=== PATIENT | male | born 2000 | race Caucasian/White ===

== ENCOUNTER 2023-07-09 22:21 | Emergency (ER) | payer BC ==
--- NOTE | 2023-07-09 22:33 | ED ---
General Adult HPI - General Source: patient, police Mode of arrival: EMS Limitations: no limitations <Gonzales Huang - Last Filed: 07/09/23 22:32> <Michoacano Young - Last Filed: 07/10/23 13:36> - General Chief complaint: Psychiatric Symptoms Stated complaint: Mental Health Time Seen by Provider: 07/09/23 22:25 - History of Present Illness Initial comments: Dictation was produced using [employer] dictation software. please excuse any grammatical, word or spelling errors. Chief Complaint: 22-year-old male brought to the emergency department for psychiatric evaluation History of Present Illness: Patient 22-year-old male brought in from home by law enforcement. Patient had a petition filled out by parents for patient who is exhibiting signs of acute psychosis. According to petition note patient has been showing some bizarre behavior. He is also having aggressive behavior towards family. Parents are worried about their wellbeing. They are concerned that patient is having a acute psychiatric issue. Patient has no history of psychiatric illness The ROS documented in this emergency department record has been reviewed and confirmed by me. Those systems with pertinent positive or negative responses have been documented in the HPI. All other systems are other negative and/or noncontributory. (Gonzales Huang) Review of Systems ROS Other: All systems not noted in ROS Statement are negative. <Gonzales Huang - Last Filed: 07/09/23 22:32> ROS Other: All systems not noted in ROS Statement are negative. <Michoacano Young - Last Filed: 07/10/23 13:36> ROS Statement: Those systems with pertinent positive or pertinent negative responses have been documented in the HPI. General Exam Limitations: no limitations <Gonzales Huang - Last Filed: 07/09/23 22:32> - General Exam Comments Initial Comments: General: Well-appearing, nontoxic, no acute distress. Head: Normocephalic, atraumatic Eyes: PERRLA, EOMI ENT: Airway patent Chest: Nonlabored breathing Skin: No visual rash, normal skin tone Neuro: Alert and oriented 3 Musculoskeletal: No gross abnormalities (Gonzales Huang) Course Vital Signs 07/09/23 22:24 Temperature 98.3 F Pulse Rate 61 Respiratory 18 Rate Blood Pressure 154/90 O2 Sat by Pulse 98 Oximetry Medical Decision Making <Gonzales Huang - Last Filed: 07/09/23 22:32> <Michoacano Young - Last Filed: 07/10/23 13:36> - Medical Decision Making Was pt. sent in by a medical professional or institution (, SAULO, ENGINEERING OPERATIONS LEADER, urgent care, hospital, or alf...) When possible be specific @ -No Did you speak to anyone other than the patient for history (EMS, parent, family, police, friend...)? What history was obtained from this source @ -Low enforcement as described above Did you review nursing and triage notes (agree or disagree)? Why? @ -I reviewed and agree with nursing and triage notes Were old charts reviewed (outside hosp., previous admission, EMS record, old EKG, old radiological studies, urgent care reports/EKG's, alf records)? Report findings @ -Petition documents reviewed as described above Differential Diagnosis (chest pain, altered mental status, abdominal pain women, abdominal pain men, vaginal bleeding, musculoskeletal, weakness, fever, dyspnea, syncope, headache, dizziness, GI bleed, back pain, seizure, CVA, palpatations, mental health)? @ -Differential Mental Health: Depression, anxiety, bipolar, psychosis, schizophrenia, borderline personality, situational depression, adjustment disorder, behavioral disorder, brain tumor, malingering, substance abuse, encephalopathy, medication reaction, dementia, hypothyroidism, degenerative neurologic disorder, lupus.... This is not meant to be all-inclusive list EKG interpreted by me (3pts min.). @ -None done X-rays interpreted by me (1pt min.). @ -None done CT interpreted by me (1pt min.). @ -None done U/S interpreted by me (1pt. min.). @ -None done What testing was considered but not performed or refused? (CT, X-rays, U/S, labs)? Why? @ -None What meds were considered but not given or refused? Why? @ -None Did you discuss the management of the patient with other professionals (professionals i.e. , SAULO, ENGINEERING OPERATIONS LEADER, lab, RT, psych nurse, social media editor, order management specialist, teacher, identification officer, medical case worker)? Give summary @ -No Was smoking cessation discussed for >3mins.? @ -No Was critical care preformed (if so, how long)? @ -No Were there social determinants of health that impacted care today? How? (Homelessness, low income, unemployed, alcoholism, drug addiction, transportation, low edu. Level, literacy, decrease access to med. care, assisted, rehab)? @ -No Was there de-escalation of care discussed even if they declined (Discuss DNR or withdrawal of care, Hospice)? DNR status @ -No What co-morbidities impacted this encounter? (DM, HTN, Smoking, COPD, CAD, Cancer, CVA, ARF, Chemo, Hep., AIDS, mental health diagnosis, sleep apnea, morbid obesity)? @ -None Was patient admitted / discharged? Hospital course, mention meds given and route, prescriptions, significant lab abnormalities, going to OR and other pertinent info. @ -22-year-old male brought in from home for EPS evaluation. Vital signs are stable. (Gonzales Huang) Patient medically cleared by previous provider. Was pending psychiatric evalu ation by EPS. EPS Hany evaluated the patient discussed with psychiatry. He does meet inpatient criteria for psychiatric admission. Clinical certificate completed by myself. Diagnosis/symptom? @ -Acute psychosis Acute, or Chronic, or Acute on Chronic? @ -Acute Uncomplicated (without systemic symptoms) or Complicated (systemic symptoms)? @ -Complicated Side effects of treatment? @ -None Exacerbation, Progression, or Severe Exacerbation] @ -No Poses a threat to life or bodily function? @ -Yes (Michoacano Young) Disposition <Gonzales Huang - Last Filed: 07/09/23 22:32> <Michoacano Young - Last Filed: 07/10/23 13:36> Clinical Impression: Acute psychosis Disposition: TRANSFER TO PSYCH HOSP/UNIT Condition: Stable Referrals: None,Stated [Primary Care Provider] - 1-2 days
[2023-07-10 15:50] LABS: Basophils # (A) 0.1 k/uL (0-0.2); Basophils % (A) 1 %; Eosinophils # (A) 0.6 k/uL (0-0.7); Eosinophils % (A) 8 %; HCT 43.8 % (39.0-53.0); HGB 15.2 gm/dL (13.0-17.5); Lymphocytes # (A) 2.1 k/uL (1.0-4.8); Lymphocytes % (A) 31 %; MCH 30.6 pg (25.0-35.0); MCHC 34.7 g/dL (31.0-37.0); MCV 88.1 fL (80.0-100.0); Mean Platelet Volume 7.3; Monocytes # (A) 0.6 k/uL (0-1.0); Monocytes % (A) 9 %; Neutrophils # (A) 3.3 k/uL (1.3-7.7); Neutrophils % (A) 49 %; RBC 4.98 m/uL (4.30-5.90); RDW 11.9 % (11.5-15.5); WBC 6.7 k/uL (3.8-10.6)
[2023-07-10 16:06] LABS: African American GFR (CKD) >90 (>60 ml/min/1.73 sqM); Anion Gap 10 mmol/L; Blood Urea Nitrogen 16 mg/dL (9-20); Calcium 9.5 mg/dL (8.4-10.2); Carbon Dioxide 21 mmol/L (22-30); Chloride 107 mmol/L (98-107); Glucose 82 mg/dL (74-99); Non-African American GFR(CKD) >90 (>60 ml/min/1.73 sqM); Potassium 4.4 mmol/L (3.5-5.1); Sodium 138 mmol/L (137-145)
[2023-07-10 16:36] LABS: Platelet Count 207 k/uL (150-450)
[2023-07-10] MEDS: HALOPERIDOL LACTATE 5 MG/ML 1 ML VIAL IM STA (17:04)
[2023-07-10] MEDS: LORazepam 2 MG/ML INJ IM STA (17:05)
[2023-07-11] MEDS: HALOPERIDOL LACTATE 5 MG/ML 1 ML VIAL IM STA (01:54)
[2023-07-11] MEDS: LORazepam 2 MG/ML INJ IM STA (01:55)
[2023-07-11 04:45] VITALS: BP 168/82; PULSE 75; RESP 16; TEMP 97.9
== END 2023-07-11 15:59 ==
LOC: EC 22:21
DX: F23 Brief psychotic disorder (principal); Z11.52 Encounter for screening for COVID-19
CPT/HCPCS: 36415; 80048; 82075; 85025; 87636; 99285

== ENCOUNTER 2023-08-06 08:51 | Inpatient (IN) | payer BC, MEDICAID, OTHER ==
[2023-08-06 09:50] LABS: Basophils % (A) 1 %; Eosinophils # (A) 0.4 k/uL (0-0.7); Eosinophils % (A) 5 %; HCT 36.5 % (39.0-53.0); Lymphocytes # (A) 1.6 k/uL (1.0-4.8); Lymphocytes % (A) 20 %; MCH 30.5 pg (25.0-35.0); MCHC 35.6 g/dL (31.0-37.0); MCV 85.7 fL (80.0-100.0); Mean Platelet Volume 7.4; Monocytes # (A) 0.5 k/uL (0-1.0); Monocytes % (A) 6 %; Neutrophils # (A) 5.1 k/uL (1.3-7.7); Neutrophils % (A) 65 %; Platelet Count 252 k/uL (150-450); RBC 4.26 m/uL (4.30-5.90); RDW 12.6 % (11.5-15.5); WBC 7.7 k/uL (3.8-10.6)
[2023-08-06 10:10] LABS: Potassium 3.9 mmol/L (3.5-5.1)
[2023-08-06 10:11] LABS: ALT 37 U/L (4-49); AST 33 U/L (17-59); African American GFR (CKD) >90 (>60 ml/min/1.73 sqM); Albumin 4.2 g/dL (3.5-5.0); Alkaline Phosphatase 66 U/L (38-126); Anion Gap 12 mmol/L; Blood Urea Nitrogen 20 mg/dL (9-20); Calcium 9.6 mg/dL (8.4-10.2); Carbon Dioxide 23 mmol/L (22-30); Chloride 107 mmol/L (98-107); Glucose 93 mg/dL (74-99); Non-African American GFR(CKD) >90 (>60 ml/min/1.73 sqM); Sodium 142 mmol/L (137-145); Total Bilirubin 1.2 mg/dL (0.2-1.3); Total Protein 7.3 g/dL (6.3-8.2)
--- NOTE | 2023-08-06 10:50 | ED ---
Psych HPI - General Source: patient, police, RN notes reviewed Mode of arrival: wheelchair Limitations: no limitations <Migue Perez - Last Filed: 08/06/23 10:43> <Michoacano Young - Last Filed: 08/07/23 15:22> - General Chief Complaint: Psychiatric Symptoms Stated Complaint: Petitioned Time Seen by Provider: 08/06/23 08:54 - History of Present Illness Initial Comments: 22-year-old male presents emergency department with police from care home for psychiatric evaluation. Patient has been detained for the last few days they state he has been spent standing in his cell masturbating for 2 days. They noted some swelling on his feet as he has not sat down. Patient is unable to provide any useful information as he does not answer questions with appropriate answers he is currently hyperverbal. He states that he has been like this in the past he has been here for psychiatric evaluations. Will not answer if he uses any drugs or alcohol. Denies being suicidal (Migue Perez) - Related Data Home Medications Medication Instructions Recorded Confirmed OLANZapine [ZyPREXA] 5 mg PO DIRECTED 08/06/23 08/06/23 Allergies Allergy/AdvReac Type Severity Reaction Status Date / Time seasoal allergies Allergy Unknown Uncoded 08/06/23 11:23 Review of Systems ROS Other: All systems not noted in ROS Statement are negative. <Migue Perez - Last Filed: 08/06/23 10:43> ROS Other: All systems not noted in ROS Statement are negative. <Michoacano Young - Last Filed: 08/07/23 15:22> ROS Statement: Those systems with pertinent positive or pertinent negative responses have been documented in the HPI. Past Medical History Past Medical History: No Reported History Past Surgical History: No Surgical Hx Reported Past Psychological History: Unable to Obtain Smoking Status: Unknown if ever smoked Past Alcohol Use History: Unable to Obtain Past Drug Use History: Unable to Obtain <Migue Perez - Last Filed: 08/06/23 10:43> General Exam Limitations: altered mental status General appearance: alert, in no apparent distress Eye exam: Present: normal appearance, PERRL, EOMI. Absent: scleral icterus, conjunctival injection, periorbital swelling ENT exam: Present: normal exam, normal oropharynx, mucous membranes moist Neck exam: Present: normal inspection, full ROM. Absent: tenderness, meningismus, lymphadenopathy Respiratory exam: Present: normal lung sounds bilaterally. Absent: respiratory distress, wheezes, rales, rhonchi, stridor Cardiovascular Exam: Present: regular rate, normal rhythm, normal heart sounds. Absent: systolic murmur, diastolic murmur, rubs, gallop, clicks GI/Abdominal exam: Present: soft, normal bowel sounds. Absent: distended, tenderness, guarding, rebound, rigid Extremities exam: Present: pedal edema, other (Swelling pitting edema bilateral lower extremities) Neurological exam: Present: alert. Absent: oriented X3 Psychiatric exam: Present: manic Skin exam: Present: warm, dry, intact, normal color, other (Gandara noted on the hand). Absent: rash <Migue Perez - Last Filed: 08/06/23 10:43> Course Vital Signs 08/06/23 08:59 Temperature 98.4 F Pulse Rate 68 Respiratory 18 Rate Blood Pressure 140/72 O2 Sat by Pulse 100 Oximetry Medical Decision Making - Lab Data Result diagrams: 08/06/23 09:22 08/06/23 09:22 <Migue Perez - Last Filed: 08/06/23 10:43> - Lab Data Result diagrams: 08/06/23 09:22 08/06/23 09:22 <Michoacano Young - Last Filed: 08/07/23 15:22> - Medical Decision Making Was pt. sent in by a medical professional or institution (SAULO Blevins, KINESIOLOGY PROFESSOR, urgent care, hospital, or [place] [facility]...) When possible be specific @ -No Did you speak to anyone other than the patient for history (EMS, parent, family, police, friend...)? What history was obtained from this source @ -Police providing care home history Did you review nursing and triage notes (agree or disagree)? Why? @ -I reviewed and agree with nursing and triage notes Were old charts reviewed (outside hosp., previous admission, EMS record, old EKG, old radiological studies, urgent care reports/EKG's, [place] [facility] records)? Report findings @ -No old charts were reviewed Differential Diagnosis (chest pain, altered mental status, abdominal pain women, abdominal pain men, vaginal bleeding, weakness, fever, dyspnea, syncope, headache, dizziness, GI bleed, back pain, seizure, CVA, palpatations, mental health, musculoskeletal)? @ -Differential Mental Health Depression, anxiety, bipolar, psychosis, schizophrenia, borderline personality, situational depression, adjustment disorder, behavioral disorder, brain tumor, malingering, substance abuse, encephalopathy, medication reaction, dementia, hypothyroidism, degenerative neurologic disorder, lupus.... This is not meant to be all-inclusive list EKG interpreted by me (3pts min.). @ -As above X-rays interpreted by me (1pt min.). @ -None done CT interpreted by me (1pt min.). @ -None done U/S interpreted by me (1pt. min.). @ -None done What testing was considered but not performed or refused? (CT, X-rays, U/S, labs)? Why? @ -None What meds were considered but not given or refused? Why? @ -None Did you discuss the management of the patient with other professionals (professionals i.e. , PA, KINESIOLOGY PROFESSOR, lab, RT, psych nurse, social media project manager, supervisor multifocal lens, teacher, youth liaison officer, nurse case management)? Give summary @ -EPS evaluated the patient and recommended inpatient treatment Was smoking cessation discussed for >3mins.? @ -No Was critical care preformed (if so, how long)? @ -No Were there social determinants of health that impacted care today? How? (Homelessness, low income, unemployed, alcoholism, drug addiction, transportation, low edu. Level, literacy, decrease access to med. care, care home, rehab)? @ -No Was there de-escalation of care discussed even if they declined (Discuss DNR or withdrawal of care, Hospice)? DNR status @ -No What co-morbidities impacted this encounter? (DM, HTN, Smoking, COPD, CAD, Cancer, CVA, ARF, Chemo, Hep., AIDS, mental health diagnosis, sleep apnea, morbid obesity)? @ -None Was patient admitted / discharged? Hospital course, mention meds given and route, prescriptions, significant lab abnormalities, going to OR and other pertinent info. @ -Admitted to psych for further treatment management Undiagnosed new problem with uncertain prognosis? @ -No Drug Therapy requiring intensive monitoring for toxicity (Heparin, Nitro, Insulin, Cardizem)? @ -No Were any procedures done? @ -No Diagnosis/symptom? @ -Acute psychosis Acute, or Chronic, or Acute on Chronic? @ -Acute Uncomplicated (without systemic symptoms) or Complicated (systemic symptoms)? @ -Uncomplicated Side effects of treatment? @ -No Exacerbation, Progression, or Severe Exacerbation? @ -No Poses a threat to life or bodily function? How? (Chest pain, USA, IA, pneumonia, PE, COPD, DKA, ARF, appy, cholecystitis, CVA, Diverticulitis, Homicidal, Kym cidal, threat to staff... and all critical care pts) @ -No (Migue Perez) Clinical certificate completed by myself. (Michoacano Young) - Lab Data Lab Results 08/06/23 08/06/23 08/06/23 Range/Units 09:00 09:22 09:22 WBC 7.7 (3.8-10.6) k/uL RBC 4.26 L (4.30-5.90) m/uL Hgb 13.0 (13.0-17.5) gm/dL Hct 36.5 L (39.0-53.0) % MCV 85.7 (80.0-100.0) fL MCH 30.5 (25.0-35.0) pg MCHC 35.6 (31.0-37.0) g/dL RDW 12.6 (11.5-15.5) % Plt Count 252 (150-450) k/uL MPV 7.4 Neutrophils % 65 % Lymphocytes % 20 % Monocytes % 6 % Eosinophils % 5 % Basophils % 1 % Neutrophils # 5.1 (1.3-7.7) k/uL Lymphocytes # 1.6 (1.0-4.8) k/uL Monocytes # 0.5 (0-1.0) k/uL Eosinophils # 0.4 (0-0.7) k/uL Basophils # 0.0 (0-0.2) k/uL Sodium 142 (137-145) mmol/L Potassium 3.9 (3.5-5.1) mmol/L Chloride 107 (98-107) mmol/L Carbon Dioxide 23 (22-30) mmol/L Anion Gap 12 mmol/L BUN 20 (9-20) mg/dL Creatinine 0.76 (0.66-1.25) mg/dL Est GFR (CKD-EPI)AfAm >90 (>60 ml/min/1.73 sqM) Est GFR (CKD-EPI)NonAf >90 (>60 ml/min/1.73 sqM) Glucose 93 (74-99) mg/dL Calcium 9.6 (8.4-10.2) mg/dL Total Bilirubin 1.2 (0.2-1.3) mg/dL AST 33 (17-59) U/L ALT 37 (4-49) U/L Alkaline Phosphatase 66 (38-126) U/L Creatine Kinase (55-170) U/L Total Protein 7.3 (6.3-8.2) g/dL Albumin 4.2 (3.5-5.0) g/dL SARS-CoV-2 (PCR) Not Detected (Not Detectd) 08/06/23 Range/Units 09:22 WBC (3.8-10.6) k/uL RBC (4.30-5.90) m/uL Hgb (13.0-17.5) gm/dL Hct (39.0-53.0) % MCV (80.0-100.0) fL MCH (25.0-35.0) pg MCHC (31.0-37.0) g/dL RDW (11.5-15.5) % Plt Count (150-450) k/uL MPV Neutrophils % % Lymphocytes % % Monocytes % % Eosinophils % % Basophils % % Neutrophils # (1.3-7.7) k/uL Lymphocytes # (1.0-4.8) k/uL Monocytes # (0-1.0) k/uL Eosinophils # (0-0.7) k/uL Basophils # (0-0.2) k/uL Sodium (137-145) mmol/L Potassium (3.5-5.1) mmol/L Chloride (98-107) mmol/L Carbon Dioxide (22-30) mmol/L Anion Gap mmol/L BUN (9-20) mg/dL Creatinine (0.66-1.25) mg/dL Est GFR (CKD-EPI)AfAm (>60 ml/min/1.73 sqM) Est GFR (CKD-EPI)NonAf (>60 ml/min/1.73 sqM) Glucose (74-99) mg/dL Calcium (8.4-10.2) mg/dL Total Bilirubin (0.2-1.3) mg/dL AST (17-59) U/L ALT (4-49) U/L Alkaline Phosphatase (38-126) U/L Creatine Kinase 200 H (55-170) U/L Total Protein (6.3-8.2) g/dL Albumin (3.5-5.0) g/dL SARS-CoV-2 (PCR) (Not Detectd) Disposition Time of Disposition: 10:48 <Migue Perez - Last Filed: 08/06/23 10:43> <Michoacano Young - Last Filed: 08/07/23 15:22> Clinical Impression: Acute psychosis Disposition: TRANSFER TO PSYCH HOSP/UNIT
[2023-08-06] MEDS: LORazepam 2 MG/ML INJ IV STA (11:46)
[2023-08-06] MEDS: LORazepam 2 MG/ML INJ IM STA (11:53)
[2023-08-06] MEDS ORDERED: MAGNESIUM HYDROXIDE 2,400 MG/30 ML CUP PO PRN (13:10)
[2023-08-06] MEDS ORDERED: MAG HYDROX/AL HYDROX/SIMETH 355 ML BOTTLE PO PRN (13:10)
[2023-08-06] MEDS ORDERED: HALOPERIDOL LACTATE 5 MG/ML 1 ML VIAL IM PRN (13:12)
[2023-08-06] MEDS ORDERED: OLANZapine 5 MG TAB PO PRN (13:12)
[2023-08-06] MEDS ORDERED: LORazepam 2 MG/ML INJ IM PRN (13:12)
--- NOTE | 2023-08-06 15:33 | P.PN ---
Progress Note - Text Progress Note Date: 08/06/23 I attempted to see this patient. He was sleeping and did not want to be bothered. Will re-attempt later on.
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
[2023-08-07] MEDS: haloperidoL 5 MG TAB PO PRN (08:38)
[2023-08-07] MEDS: LORazepam 1 MG TAB PO PRN (08:38)
[2023-08-07] MEDS: NICOTINE 14MG/24HR PATCH TRANSDERM SCH (08:44)
[2023-08-07] MEDS: OLANZapine 5 MG TAB PO SCH (20:35)
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
[2023-08-07 22:50] LABS: Appearance,Urine Clear (Clear); Bilirubin,Urine Negative (Negative); Blood,Urine Negative (Negative); Color,Urine Colorless; Glucose,Urine (UA) Negative (Negative); Ketones,Urine Negative (Negative); Leukocyte Esterase,Urine Negative (Negative); Nitrite,Urine Negative (Negative); PH, Urine 6.5 (5.0-8.0); Protein,Urine Negative (Negative); Specific Gravity,Urine 1.002 (1.001-1.035); Urobilinogen,Urine <2.0 mg/dL (<2.0)
[2023-08-07 23:03] LABS: Amphetamine Screen,Urine Not Detected (NotDetected); Barbiturate Screen,Urine Not Detected (NotDetected); Benzodiazepines Screen,Urine Not Detected (NotDetected); Cocaine Screen,Urine Not Detected (NotDetected); Methadone Screen, Urine Not Detected (NotDetected); Opiate Screen,Urine Not Detected (NotDetected); Oxycodone Screen, Urine Not Detected (NotDetected); Phencyclidine Screen,Urine Not Detected (NotDetected); Tricyclic Antidepressant,Urine Not Detected (NotDetected); Urn Cannabinoid Scrn Detected (NotDetected)
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
[2023-08-08 15:57] LABS: Chol/HDL Ratio 2.09 Ratio; LDL Cholesterol,Calculated 47.1 mg/dL (0.0-131.0); VLDL Calculation 10.28 mg/dL (5.00-40.00)
[2023-08-08 16:17] LABS: African American GFR (CKD) >90 (>60 ml/min/1.73 sqM); Anion Gap 6 mmol/L; Blood Urea Nitrogen 16 mg/dL (9-20); Calcium 9.4 mg/dL (8.4-10.2); Carbon Dioxide 30 mmol/L (22-30); Chloride 102 mmol/L (98-107); Glucose 82 mg/dL (74-99); Non-African American GFR(CKD) >90 (>60 ml/min/1.73 sqM); Potassium 4.6 mmol/L (3.5-5.1); Sodium 138 mmol/L (137-145)
--- NOTE | 2023-08-08 19:31 | CA ---
Transthoracic Echo Report Name: Emanuel Tripp Age: 22 Gender: M : 2000 Exam Date: 08/08/2023 18:22 Exam Location: [facility] Ht (in): 67 Wt (lb): 170 Ordering Physician: Nav Gill MD Attending/Referring Phys: Photo Tube Assembler Regine Hernandez RCS Procedure CPT: Indications: EKG changes, bradycardia Cardiac Hx: Technical Quality: Good Contrast 1: Total Dose (mL): Contrast 2: Total Dose (mL): MEASUREMENTS (Male / Female) Normal Values 2D ECHO LV Diastolic Diameter PLAX 5.9 cm 4.2 - 5.9 / 3.9 - 5.3 cm LV Systolic Diameter PLAX 3.8 cm IVS Diastolic Thickness 0.9 cm 0.6 - 1.0 / 0.6 - 0.9 cm LVPW Diastolic Thickness 0.8 cm 0.6 - 1.0 / 0.6 - 0.9 cm LV Relative Wall Thickness 0.3 RV Internal Dim ED PLAX 2.6 cm LVOT Diameter 2.2 cm LV Diastolic Volume MOD BP 228.5 cm??? 67 - 155 / 56 - 104 cm??? LV Systolic Volume MOD BP 101.9 cm??? 22 - 58 / 19 - 49 cm??? LV Ejection Fraction MOD BP 55.4 % >= 55 % LV Cardiac Index MOD BP 3292.0 cm???/min???m??? LV Diastolic Volume MOD 4C 208.9 cm??? LV Systolic Volume MOD 4C 90.7 cm??? LV Ejection Fraction MOD 4C 56.6 % LV Cardiac Index MOD 4C 3072.6 cm???/min???m??? LV Diastolic Length 4C 10.3 cm LV Systolic Length 4C 8.3 cm LV Diastolic Volume MOD 2C 243.8 cm??? LV Systolic Volume MOD 2C 112.2 cm??? LV Ejection Fraction MOD 2C 54.0 % LV Cardiac Index MOD 2C 3420.3 cm???/min???m??? LV Diastolic Length 2C 10.6 cm LV Systolic Length 2C 8.5 cm LA Volume 85.0 cm??? 18 - 58 / 22 - 52 cm??? LA Volume Index 44.2 cm???/m??? 16 - 28 cm???/m??? DOPPLER AV Peak Velocity 158.5 cm/s AV Peak Gradient 10.1 mmHg AV Mean Velocity 112.6 cm/s AV Mean Gradient 5.5 mmHg AV Velocity Time Integral 35.1 cm LVOT Peak Velocity 137.1 cm/s LVOT Peak Gradient 7.5 mmHg LVOT Velocity Time Integral 28.7 cm LVOT Stroke Volume 110.2 cm??? LVOT Stroke Volume Index 58.4 ml/m??? LVOT Cardiac Index 2863.9 cm???/min???m??? AV Area Cont Eq vti 3.1 cm??? AV Area Cont Eq pk 3.3 cm??? MV Area PHT 5.0 cm??? Mitral E Point Velocity 105.0 cm/s Mitral A Point Velocity 26.5 cm/s Mitral E to A Ratio 4.0 MV Deceleration Time 152.2 ms PV Peak Velocity 117.5 cm/s PV Peak Gradient 5.5 mmHg FINDINGS Left Ventricle Left ventricular ejection fraction is estimated at 55 %. Severely increased left ventricular diastolic volume. Severely increased left ventricular systolic volume. Left ventricular wall thickness normal. No obvious regional wall motion abnormalities. Right Ventricle Moderate right ventricular dilatation with normal function. Unable to estimate right ventricular systolic pressure. Right Atrium Moderate right atrial dilatation. Left Atrium Severely increased left atrial volume. Mitral Valve Structurally normal mitral valve. No evidence for mitral valve prolapse. No mitral stenosis. Trace mitral regurgitation. Aortic Valve Trileaflet aortic valve. No aortic valve stenosis or regurgitation. Tricuspid Valve Structurally normal tricuspid valve. No tricuspid stenosis. Trace tricuspid regurgitation. Pulmonic Valve Structurally normal pulmonic valve. No pulmonic stenosis. Mild pulmonic regurgitation. Pericardium No pericardial effusion. Aorta Normal size aortic root and proximal ascending aorta. CONCLUSIONS Dilated LV with normal LV systolic function Thickened pericardium without effusion Dilated IVC Dilated RV Previewed by: Dr. Nikolas Crawley MD (Electronically Signed) Final Date: 08 August 2023 19:30
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
[2023-08-10] MEDS: ACETAMINOPHEN TAB 325 MG TAB PO PRN (01:22)
--- NOTE | 2023-08-10 11:07 | P.PN ---
Subjective Progress Note Date: 08/10/23 Patient Name: Emanuel Tripp Date of : [birth year] Patient Status: Inpatient Attending Provider: Reece Apple Date: 08/10/23 Initialization Date: 08/08/23 12:48 In-Patient Follow-up Chief Complaint: I am feeling awesome Subjective: the patient was seen chart was reviewed and case discussed with the nursing staff The patient comes across as extremely grandiose and delusional Patient started talking about being in a connection with the God Time patient switched to another topic about a TV show that she has watched recently thought process remains flighty and tangential and circumstantial Interim History: Behavioral Changes: Behavioral issues. PRN meds/isolation/restraints/ change in status: None. Change in medical condition: No change. Change in medications: No change. Side effects from Medications: None. Objective- MSE: Alert and attentive. Orientation times three. Dressed and Groomed: Appropriately. Pleasant and cooperative. Psychomotor Activity: Normal. Speech: Normal in tone, quality, and quantity. Mood: Good. Affect: Appropriate. SI or HI: None. Perceptual disturbance:according to the chart Patient talk to himself loud. He call them as having internal dialogue. Thought Content: Paranoid and Grandiose delusions Thought Process: Normal. Cognition: Intact Judgment and Insight: Partial AIMS: Normal. Labs: Reviewed with patients. Vital signs: Diagnosis:bipolar disorder manic type Plan and recommendation: Will increase the Zyprexa to 15 mg at bedtime Discussed effects and side effects . Monitor MS and side effects of medications and adjust medications accordingly. Provide supportive psychotherapy. The patient provided psychoeducation. The patient provided Substance abuse counseling. Smoke cessation therapy. The patient to continue attending the [facility] activities. Fish Collins MD Objective - Vital Signs Vital signs: Vital Signs Temp 98.7 F 08/09/23 06:32 Pulse 50 L 08/09/23 06:32 Resp 18 08/09/23 06:32 BP 128/63 08/09/23 06:32 Pulse Ox 100 08/09/23 06:32 FiO2 Intake & Output 08/09/23 08/10/23 08/10/23 18:59 06:59 18:59 Weight 73.8 kg - Labs CBC & Chem 7: 08/06/23 09:22 08/08/23 15:35
[2023-08-10] MEDS: OLANZapine 7.5 MG TAB PO SCH (20:09)
[2023-08-11] MEDS: DIVALPROEX 250 MG TABLET.DR PO SCH (21:17)
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
[2023-08-12] MEDS: DIVALPROEX 250 MG TABLET.DR PO SCH (17:00)
[2023-08-12] MEDS: OLANZapine 10 MG TAB PO SCH (21:01)
[2023-08-13 08:08] VITALS: RESP 16
--- NOTE | 2023-08-13 10:24 | P.PN ---
Progress Note - Text Progress Note Date: 08/13/23 In-Patient Follow-up Chief Complaint: I am worried about my belongings Subjective: The patient has been doing the same. He did not show any spontaneous delusional thinking. He held a much reasonable conversation today. Few times he got side tracked and lost the logical goal directed conversation. Most of the time he was appropriate and focused. However most the conversation was closed ended focused on his cell phone and paying his bills. The patient wants to retrieve his cell phone from longterm so he can pay his bills on line. He noted that he feels better but this stress is hindering his progress. He has been compliant with treatment recommendations. He is attending groups and interacting with staff and peers appropriately. Leading questions: The patient denied Depression and Anxiety. Denied SI or HI. Denied symptoms consistent with psychosis Sleep and Appetite: Good. Interim History: Behavioral Changes: PRN meds/isolation/restraints/ change in status: The patient got one dose of po Ativan for anxiety. Change in medical condition: No change. Change in medications: No change. Side effects from Medications: None. Objective- MSE: Alert and attentive. Orientation times three. Dressed and Groomed: Appropriately. Pleasant and cooperative. Psychomotor Activity: Normal. Speech: Normal in tone, quality, quantity. Mood: Anxious Affect: Worried SI or HI: None. Perceptual disturbance: None. Thought Content: Paranoid, grandiose delusions. Thought Process: Tangentiality. Cognition: Intact Judgment and Insight: poor AIMS: Normal. Labs: No new labs. Diagnosis: No change. Plan and recommendation: Continue current. Monitor MS and side effects of medications and adjust medications accordingly. Provide supportive psychotherapy. The patient provided psychoeducation. The patient provided Substance abuse counseling. Smoke cessation therapy. The patient to continue attending the [facility] activities. Medication Consent with explanation of risk/benefits and side effects: Explained and obtained.
--- NOTE | 2023-08-14 10:35 | P.PN ---
Progress Note - Text Progress Note Date: 08/14/23 In-Patient Follow-up Chief Complaint: I am feeling very good Subjective: The patient noted that he is feeling very good. 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 The patient noted that he has been attending [employer] activities. He is interacting with staff and peers without any problems. The patient noted that few times some will were rough but he stayed away from them. The patient, I am not a violent person, I dont get upset when somebody provokes me I try to deescalate the situation. His conversations are more goal directed. He reported no side effects of medication. Overall, patient is showing improvement his MS. Leading questions: The patient denied Depression and Anxiety. Denied SI or HI. Denied symptoms consistent with psychosis Sleep and Appetite: Good. Interim History: Behavioral Changes: PRN meds/isolation/restraints/ change in status: The patient got one dose of po Ativan for anxiety. Change in medical condition: No change. Change in medications: No change. Side effects from Medications: None. Objective- MSE: Alert and attentive. Orientation times three. Dressed and Groomed: Appropriately. Pleasant and cooperative. Psychomotor Activity: Normal. Speech: Normal in tone, quality, quantity. Mood: Good. Affect: Consistent with mood. SI or HI: None. Perceptual disturbance: None. Thought Content: Mild grandiosity noted. Thought Process: Mild flight of ideas. Cognition: Intact Judgment and Insight: Fair AIMS: Normal. Labs: No new labs. Diagnosis: No change. Plan and recommendation: Continue current. Monitor MS and side effects of medications and adjust medications accordingly. Provide supportive psychotherapy. The patient provided psychoeducation. The patient provided Substance abuse counseling. Smoke cessation therapy. The patient to continue attending the [employer] activities. Medication Consent with explanation of risk/benefits and side effects: Explained and obtained.
[2023-08-15 08:12] VITALS: BP 127/58; PULSE 70; TEMP 97.5
--- NOTE | 2023-08-15 23:18 | P.DS ---
Providers Date of admission: 08/06/23 12:56 Expected date of discharge: 08/15/23 Attending physician: Reece Apple MD Consults: 08/06/23 13:10 Consult Physician Routine Consulting Provider: Mindy Currie Consult Reason/Comments: H&P Do you want consulting provider notified?: Yes Primary care physician: Stated None - Discharge Diagnosis(es) (1) Schizoaffective disorder, bipolar type Status: Acute Priority: High (2) Marijuana abuse Status: Acute Priority: Medium Patient Condition at Discharge: Stable Plan - Discharge Summary Discharge Rx Participant: No New Discharge Prescriptions: New Divalproex [Depakote] 250 mg PO TID 30 Days #90 tab OLANZapine [ZyPREXA] 10 mg PO BID 30 Days #30 tab Discontinued OLANZapine [ZyPREXA] 5 mg PO DIRECTED Discharge Medication List Divalproex [Depakote] 250 mg PO TID 30 Days #90 tab 08/15/23 [Rx] OLANZapine [ZyPREXA] 10 mg PO BID 30 Days #30 tab 08/15/23 [Rx] Follow up Appointment(s)/Referral(s): Care, Yes [Other] - 08/15/23 4:00 pm [facility] - 1 Week Patient Instructions/Handouts: Psychotic Disorder (DC) Activity/Diet/Wound Care/Special Instructions: Avoid the use of street drugs and alcohol. Take all medications as prescribed. When you are in need of refills on your medications, please contact your medical provider and/or outpatient psychiatrist/provider to have this done. Please go to your scheduled outpatient appointment for aftercare treatment. If symptoms return or become worse, call the crisis line at and/or go to the nearest emergency room for evaluation. National Suicide Hotline 262 Discharge Disposition: DC/TRANSFER COURT/LAW
== END 2023-08-15 15:55 | disposition home or self-care (01) | DRG 885 ==
LOC: EC 08:51 → 3MHU 12:56
PROVIDERS: ADMIT Psychiatry & Neurology Psychiatry; ATTEND Psychiatry & Neurology Psychiatry
DX: F25.0 Schizoaffective disorder, bipolar type (principal); F17.210 Nicotine dependence, cigarettes, uncomplicated; F19.10 Other psychoactive substance abuse, uncomplicated; Z79.899 Other long term (current) drug therapy; Z71.6 Tobacco abuse counseling; Z71.51 Drug abuse counseling and surveillance of drug abuser
CPT/HCPCS: 36415; 80048; 80053; 80061; 80306; 81003; 82075; 82550; 83036; 83735; 84443; 85025; 87635; 93005; 93306; 96372; 99285